=== PATIENT | male | born 1960 | race Caucasian/White ===

== ENCOUNTER → 2023-04-21 08:17 | Outpatient (CLI) | payer OTHER, SELFPAY ==
--- NOTE | 2023-04-21 08:24 | DI.MRI.S_ITS ---
PROCEDURE: MR LUMBAR SPINE WO CON INDICATIONS: LEFT L5 RADICULOPATHY TECHNIQUE: Noncontrast sagittal T1 spin echo and T2 fast echo, sagittal STIR, and T2 fast spin echo through the lumbar spine. In this patient, additional dedicated oblique coronal T1 weighted and STIR images were obtained through the sacrum. COMPARISON: [facility], CR, XR LUMBAR SPINE WITH OBLIQUES, 11/07/2022, 19:00. FINDINGS: Image quality: Excellent. Alignment and Curvature: There is minimal retrolisthesis at L2-L3. Minimal anterolisthesis is seen at L4-L5. Minimal retrolisthesis is seen at L5-S1. Bone Marrow: Marrow is of normal overall signal. No acute vertebral body compression fractures. Spinal Cord: Conus medullaris terminates at the L1 level. Visualized cord demonstrates normal signal and size. Paraspinous Soft Tissues: No paravertebral masses. T12-L1: Normal appearance. L1-L2: Mild loss of disc height is seen. Loss of disc signal is seen. Moderate generalized disc bulge is seen. Mild facet joint hypertrophy is seen. L2-L3: Mild loss of disc height is seen. Loss of disc signal is seen. Moderate generalized disc bulge is seen. There is a superimposed central disc protrusion. Mild facet joint hypertrophy is seen. There is moderate right-sided and no left-sided neural foraminal narrowing. Mild to moderate central canal narrowing is seen. L3-L4: The disc height and disk signal are well-preserved. Moderate generalized disc bulge is seen. There is a superimposed central disc protrusion. Mild facet joint hypertrophy is seen. Mild to moderate bilateral neural foraminal narrowing is seen. Moderate central canal narrowing is seen. L4-L5: The disc height is well-preserved. Loss of disc signal is seen at this level. Moderate generalized disc bulge is seen, which is eccentric to the left. There is a central disc protrusion. At least moderate facet hypertrophy is seen. Associated hypertrophy of the ligamentum flavum can be seen. Fluid is seen within the facet joints themselves. Moderate bilateral neural foraminal narrowing is seen. Moderate to severe central canal narrowing is seen at this level, as on series 7, image 25. L5-S1: Moderate loss of disc height is seen. Loss of disc signal is seen. Reactive marrow endplate changes are seen anteriorly, which are hyperintense on T1-weighted and T2-weighted imaging and most consistent with fatty metaplasia (Modic type II changes). Moderate generalized disc bulge is seen. There is a superimposed central disc protrusion. Mild to moderate facet hypertrophy is seen. There is moderate to severe bilateral neural foraminal narrowing seen, with an associated a degree of compression seen upon the exiting nerve roots. Mild central canal narrowing is seen. Scrutiny is given to the sacroiliac joints. Sacroiliac joints are within normal limits for age, with mild irregularity. No abnormal sclerosis or edema can be seen. IMPRESSION: Multiple levels of lumbar spine degenerative change can be seen, which are worst inferiorly. Sacroiliac joints within normal limits. Dictated by: Brock Donahue M.D. on 04/21/2023 at 10:25 Approved by: Brock Donahue M.D. on 04/21/2023 at 10:29
== END ==
PROVIDERS: PCP Family Medicine; Referring Provider Physical Medicine & Rehabilitation; Visit Provider Physical Medicine & Rehabilitation
DX: M47.27 Other spondylosis with radiculopathy, lumbosacral region (principal); M47.26 Other spondylosis with radiculopathy, lumbar region; M51.16 Intervertebral disc disorders with radiculopathy, lumbar region
CPT/HCPCS: 72148

== ENCOUNTER 2023-05-20 09:43 | Outpatient (CLI) | payer OTHER, SELFPAY ==
[2023-05-20] VITALS (9 sets, daily range): BP systolic 141–168; BP diastolic 86–108; PULSE 60–82; RESP 12–20; TEMP 36.7; O2SAT 92–95
--- NOTE | 2023-05-20 09:44 | DI.RAD.S_ITS ---
PROCEDURE: PAIN L/S TRANSFORAMINAL INJECT INDICATIONS: SPONDYLOSIS COMPARISON: None. FINDINGS: Fluoroscopic spot filming was performed to verify placement of spinal needles at the L4-5 level(s), as labeled on the films. Appropriate location(s) of the needle tip(s) was confirmed by injection of iodinated contrast. IMPRESSION: Needle placement contrast overlying L4-5. Dictated by: Barbara Gage M.D. on 05/20/2023 at 15:35 Approved by: Barbara Gage M.D. on 05/20/2023 at 15:35
[2023-05-20] MEDS: MIDAZOLAM 2 MG/2 ML VIAL IV (10:42)
[2023-05-20] MEDS: BETAMETHASONE 30 MG/5 ML MDV 6 MG INJ (10:48)
[2023-05-20] MEDS: BUPIVACAINE 0.25% (PF) VIAL 1 ML INJ (10:48)
[2023-05-20] MEDS: DEXAMETHASONE 10 MG/ML VIAL INJ (10:50)
[2023-05-20] MEDS: iopamidoL 15 ML VIAL 3 ML INJ (10:51)
--- NOTE | 2023-05-20 10:55 | P.PCN_ITS ---
Date/Time/Diagnoses Date of procedure: 05/20/23 Time of procedure: 10:55 Pre-procedure diagnosis: 1. FORAMINAL STENOSIS WITH LE SYMPTOMS Post-procedure diagnosis: same Procedure Notes Procedure: 1. FLUOROSCOPICALLY GUIDED CONTRAST CONTROLLED TRANSFORAMINAL EPIDURAL STEROID INJECTION - LEFT L4/5 Indications: Dharmesh is referred by Dr. Mathews for treatment of Foraminal Stenosis with Left LE Symptoms Physician: Jarrett Navarro Total Fluoroscopy time (seconds): 15 Total sedation minutes: 10 Complications: none Procedure in detail & Post-procedure care: FINDINGS Foraminal Nerve Root Compression secondary to disc disease and facet hypertrophy DESCRIPTION OF PROCEDURE Following review of allergy and review of potential side effects and complications, including, but not necessarily limited to, infection, allergic reaction, local tissue breakdown, stroke, temporary or permanent nerve injury, paralysis, and possible , the patient indicated that the patient understood and agreed to proceed. An informed consent document was signed by the patient, witnessed by a nurse, and placed in the patient's chart. Additionally, other treatment options including medications, modalities, and physical therapy were reviewed with the patient. After review of previous anaesthesic history and IV conscious sedation the patient was deemed safe to proceed with today?s procedure with IV conscious sedation as ASA class II designation. Safety time-out was performed to confirm patient ID, procedure to be performed and site of procedure. IV sedation was accomplished with a combination of 2mg of Versed administered by the RN after DO order, titrated to patient comfort during the course of the procedure while the patient remained responsive to all verbal commands In the prone position following sterile prep and drape of the lumbar region, the left L4/5 posterior neuroforamen was identified fluoroscopically. The skin was anesthetized via a 25-gauge 1.5-inch needle with 1% lidocaine solution. At this point, a 25-gauge 3.5-inch spinal needle was atraumatically introduced and advanced under fluoroscopic guidance through the posterior left L4/5 neuroforamen to approximately the anterior aspect of the canal. Depth was confirmed on lateral view. Following negative aspiration, injection of approximately 1.5 cc of Isovue 200 under live fluoroscopy in the AP view confirmed excellent flow along the nerve root, into the epidural space without vascular or intrathecal uptake observed Radiological data, including multiple fluoroscopic views of the lumbosacral spine, reveal a spinal needle at the left L4/5 posterior neuroforamen. Subsequent views show flow of contrast material flowing superiorly and inferiorly along the nerve root confirming epidural flow. Subsequently, a test dose of 1.5 cc of 1% lidocaine solution was administered and patient was observed for two minutes for signs or symptoms of complications, including abdominal pain, shortness of breath, bilateral upper or lower extremity weakness, nausea and vomiting, prior to steroid injection. At this point, a total of 2cc or 10mg of dexamethasone and 6mg of betamethasone was injected without incident. The procedure tolerated the procedure well without signs or symptoms of complications prior to transfer to the recovery area continued monitoring without incident. The patient was then transferred to the recovery area where they were observed for an appropriate time after the injection. The patient reported a VAS score of 7 prior to the procedure and a post- procedure VAS of 0. POST OP INSTRUCTIONS The patient was provided a Pain Log to continue to record their response to the target-specific procedure prior to follow-up visit with their referring physician. Additionally, specific post-injection care instructions and a contact number to our office were provided if concerns arise regarding possible complications associated with the procedure are suspected.
== END 2023-05-20 11:16 | disposition home or self-care (01) ==
LOC: RAD 09:44
PROVIDERS: PCP Family Medicine; Referring Provider Physical Medicine & Rehabilitation; Visit Provider Physical Medicine & Rehabilitation
DX: M51.26 Other intervertebral disc displacement, lumbar region (principal); M51.16 Intervertebral disc disorders with radiculopathy, lumbar region
CPT/HCPCS: 64483; 99152; J0702; J1100; J2250; J3490

== ENCOUNTER 2023-08-19 08:41 | Outpatient (CLI) | payer OTHER, SELFPAY ==
[2023-08-19] VITALS (11 sets, daily range): BP systolic 128–185; BP diastolic 71–101; PULSE 63–75; RESP 12–18; TEMP 36.6; O2SAT 92–97
--- NOTE | 2023-08-19 09:15 | DI.RAD.S_ITS ---
PROCEDURE: PAIN L/S TRANSFORAMINAL INJECT INDICATIONS: facet arthropathy COMPARISON: [facility], , PAIN L/S TRANSFORAMINAL INJECT, 05/20/2023, 10:48. FINDINGS: Fluoroscopic spot filming was performed to verify placement of spinal needles at the L4-L5 level(s), as labeled on the films. Appropriate location(s) of the needle tip(s) was confirmed by injection of iodinated contrast. IMPRESSION: Please see operative note for full details. Dictated by: David Salomon M.D. on 08/19/2023 at 12:52 Approved by: David Salomon M.D. on 08/19/2023 at 12:52
[2023-08-19] MEDS: MIDAZOLAM 2 MG/2 ML VIAL IV (09:53)
[2023-08-19] MEDS: BUPIVACAINE 0.25% (PF) VIAL 2 ML INJ (09:59)
[2023-08-19] MEDS: BETAMETHASONE 30 MG/5 ML MDV 6 MG INJ (09:59)
[2023-08-19] MEDS: DEXAMETHASONE 10 MG/ML VIAL INJ ×2 (09:59→10:00)
[2023-08-19] MEDS: iopamidoL 15 ML VIAL 3 ML INJ (09:59)
[2023-08-19] MEDS: fentaNYL 100 MCG/2 ML INJ 25 MCG IV (10:03)
--- NOTE | 2023-08-19 10:14 | P.PCN_ITS ---
Date/Time/Diagnoses Date of procedure: 08/19/23 Time of procedure: 10:15 Pre-procedure diagnosis: 1. FORAMINAL STENOSIS WITH LE SYMPTOMS Post-procedure diagnosis: same Procedure Notes Procedure: 1. FLUOROSCOPICALLY GUIDED CONTRAST CONTROLLED TRANSFORAMINAL EPIDURAL STEROID INJECTION - RIGHT L4/5 TFESI Indications: Dharmesh is referred by Dr. Mathews for treatment of Foraminal Stenosis with Right LE Symptoms Physician: Jarrett Navarro Total Fluoroscopy time (seconds): 14 Total sedation minutes: 18 Complications: none Procedure in detail & Post-procedure care: FINDINGS Foraminal Nerve Root Compression secondary to disc disease and facet hypertrophy DESCRIPTION OF PROCEDURE Following review of allergy and review of potential side effects and complications, including, but not necessarily limited to, infection, allergic reaction, local tissue breakdown, stroke, temporary or permanent nerve injury, paralysis, and possible , the patient indicated that the patient understood and agreed to proceed. An informed consent document was signed by the patient, witnessed by a nurse, and placed in the patient's chart. Additionally, other treatment options including medications, modalities, and physical therapy were reviewed with the patient. After review of previous anaesthesic history and IV conscious sedation the patient was deemed safe to proceed with today?s procedure with IV conscious sedation as ASA class II designation. Safety time-out was performed to confirm patient ID, procedure to be performed and site of procedure. IV sedation was accomplished with a combination of 2mg of Versed and 25mcg of Fentanyl was administered by the RN after DO order, titrated to patient comfort during the course of the procedure while the patient remained responsive to all verbal c ommands In the prone position following sterile prep and drape of the lumbar region, the right L4/5 posterior neuroforamen was identified fluoroscopically. The skin was anesthetized via a 25-gauge 1.5-inch needle with 1% lidocaine solution. At this point, a 25-gauge 3.5-inch spinal needle was atraumatically introduced and advanced under fluoroscopic guidance through the posterior right L4/5 neuroforamen to approximately the anterior aspect of the canal. Depth was confirmed on lateral view. Following negative aspiration, injection of approximately 1.5cc of Isovue 200 under live fluoroscopy in the AP view confirmed excellent flow along the nerve root, into the epidural space without vascular or intrathecal uptake observed Radiological data, including multiple fluoroscopic views of the lumbosacral spine, reveal a spinal needle at the right L4/5 posterior neuroforamen. Subsequent views show flow of contrast material flowing superiorly and inferiorly along the nerve root confirming epidural flow. Subsequently, a test dose of 1.5 cc of 1% lidocaine solution was administered and patient was observed for two minutes for signs or symptoms of complications, including abdominal pain, shortness of breath, bilateral upper or lower extremity weakness, nausea and vomiting, prior to steroid injection. At this point, a total of 3cc or 10mg of dexamethasone and 12mg of betamethasone was injected without incident. The procedure tolerated the procedure well without signs or symptoms of complications prior to transfer to the recovery area continued monitoring without incident. The patient was then transferred to the recovery area where they were observed for an appropriate time after the injection. The patient reported a VAS score of 8 prior to the procedure and a post- procedure VAS of 1. POST OP INSTRUCTIONS The patient was provided a Pain Log to continue to record their response to the target-specific procedure prior to follow-up visit with their referring physician. Additionally, specific post-injection care instructions and a contact number to our office were provided if concerns arise regarding possible complications associated with the procedure are suspected.
== END 2023-08-19 10:38 | disposition home or self-care (01) ==
LOC: RAD 08:42
PROVIDERS: PCP Family Medicine; Referring Provider Physical Medicine & Rehabilitation; Visit Provider Physical Medicine & Rehabilitation
DX: M48.061 Spinal stenosis, lumbar region without neurogenic claudication (principal); M51.16 Intervertebral disc disorders with radiculopathy, lumbar region; M47.26 Other spondylosis with radiculopathy, lumbar region
CPT/HCPCS: 64483; 99152; J0702; J1100; J2250; J3010; J3490

== ENCOUNTER → 2025-07-29 11:16 | Outpatient (CLI) | payer MEDICARE, OTHER, SELFPAY ==
--- NOTE | 2025-07-29 11:19 | DI.RAD.S_ITS ---
PROCEDURE: XR LUMBAR SPINE MIN 4V INDICATIONS: BACK PAIN TECHNIQUE: 5 views of the lumbar spine were acquired, including bilateral oblique views. COMPARISON: [facility], CR, XR LUMBAR SPINE WITH OBLIQUES, 11/07/2022, 19:00. FINDINGS: Bones: 5 nonrib-bearing vertebrae are present. There is mild left-sided curvature of thoracolumbar spine with apex at L2 level. 5 mm anterolisthesis of L4 on L5 is seen.. No acute vertebral body compression fractures. Loss of disc height, degenerative endplate changes and bilateral facet arthrosis throughout lumbar spine is seen. No suspicious bony lesions. Soft tissues: 9 mm calcification is seen projecting in the region of midpole left kidney. No right-sided renal calcification is seen. No evidence of bowel obstruction or gross pneumoperitoneum. Oblique images: No pars defects. Bilateral bony foraminal stenosis are noted at L3-4 through L5-S1 levels. IMPRESSION: 1. Mild leftward curvature of lumbar spine and grade 1 anterolisthesis at L4-5 level as above. No acute vertebral body compression fracture. 2. [id number] degenerative disc disease throughout lumbar spine progressed compared to 2022 study. No pars defects. Suggestion of bilateral bony foraminal stenosis at L3-4 through L5-S1 levels. Dictated by: Jaun Ribera M.D. on 07/29/2025 at 11:46 Approved by: Jaun Ribera M.D. on 07/29/2025 at 11:54
== END ==
PROVIDERS: PCP Family Medicine; Referring Provider Physical Medicine & Rehabilitation; Visit Provider Physical Medicine & Rehabilitation
DX: M54.17 Radiculopathy, lumbosacral region (principal); M47.816 Spondylosis without myelopathy or radiculopathy, lumbar region; M51.369 Other intervertebral disc degeneration, lumbar region without mention of lumbar back pain or lower extremity pain; M43.16 Spondylolisthesis, lumbar region
CPT/HCPCS: 72110